=== PATIENT | female | born 1965 | race Caucasian/White ===

== ENCOUNTER 2017-07-06 08:18 | Day surgery (SDC) | payer OTHER ==
[~2017-07-06 08:18] MED LIST: Lactated Ringers 1,000 ML IV SCH; Lidocaine 1%/Sod Bicarbonate in NS 8.4% 1 ML Syringe IDERM PRN; Sodium Chloride 0.9% 10 ML Syringe FLUSH PRN
--- NOTE | 2017-07-06 09:01 | PCM.PREANE ---
Preanesthetic Assessment - Anesthesia/Transfusion/Family Hx Anesthesia History: Prior Anesthesia Without Reaction Family History of Anesthesia Reaction: No Transfusion History: No Prior Transfusion(s) - Review of Systems General: Other (obesity) Pulmonary: No Symptoms Cardiovascular: No Symptoms Gastrointestinal: No Symptoms Neurological: No Symptoms Other: Reports: Depression - Physical Assessment NPO Status Date: 07/05/17 NPO Status Time: 22:00 Pulse: 73 O2 Sat by Pulse Oximetry: 98 Respiratory Rate: 20 Blood Pressure: 124/67 Temperature: 37.1 C Weight: 104 kg ASA Class: 2 Mental Status: Alert & Oriented x3 Airway Class: Mallampati = 2 Dentition: Reports: Normal Dentition Thyro-Mental Finger Breadths: 3 Mouth Opening Finger Breadths: 3 ROM/Head Extension: Full Lungs: Clear to Auscultation, Normal Respiratory Effort Cardiovascular: Regular Rate, Regular Rhythm - Allergies Allergies/Adverse Reactions: Allergies Allergy/AdvReac Type Severity Reaction Status Date / Time No Known Allergies Allergy Verified 07/05/17 11:10 - Blood Blood Available: No Product(s) Available: None - Anesthesia Plan Pre-Op Medication Ordered: None - Acknowledgements Anesthesia Type Planned: MAC Pt an Appropriate Candidate for the Planned Anesthesia: Yes Alternatives and Risks of Anesthesia Discussed w Pt/Guardian: Yes Pt/Guardian Understands and Agrees with Anesthesia Plan: Yes PreAnesthesia Questionnaire HEENT History: Reports: Impaired Vision, Other (See Below) Other HEENT History: wears glasses Cardiovascular History: Reports: None Respiratory History: Reports: None Gastrointestinal History: Reports: Hemorrhoids Genitourinary History: Reports: None 3D ARTIST History: Reports: None Musculoskeletal History: Reports: None Neurological History: Reports: Migraines Psychiatric History: Reports: Depression Endocrine/Metabolic History: Reports: Obesity/BMI 30+ Hematologic History: Reports: None Immunologic History: Reports: None Oncologic (Cancer) History: Reports: None Dermatologic History: Reports: None - Past Surgical History Head Surgeries/Procedures: Reports: None Cardiovascular Surgical History: Reports: None Respiratory Surgical History: Reports: None GI Surgical History: Reports: None Female Surgical History: Reports: Hysterectomy Male Surgical History: Reports: None Endocrine Surgical History: Reports: None Neurological Surgical History: Reports: None Musculoskeletal Surgical History: Reports: None Oncologic Surgical History: Reports: None Dermatological Surgical History: Reports: None - SUBSTANCE USE Smoking Status *Q: Former Smoker Recreational Drug Use History: No - HOME MEDS Home Medications: Home Meds . [No Known Home Meds] 07/05/17 [History] - CURRENT (IN HOUSE) MEDS Current Meds: Current Medications Lactated Ringer's (Ringers, Lactated) 1,000 mls @ 125 mls/hr IV ASDIRECTED ANTWAN Stop: 07/06/17 23:00 Lidocaine/Sodium Bicarbonate (Buffered Lidocaine 1% In Ns 8.4%) 0.25 ml IDERM ONETIME PRN PRN Reason: Prior to IV Start Stop: 07/06/17 18:00 Sodium Chloride (Saline Flush) 10 ml FLUSH ASDIRECTED PRN PRN Reason: Keep Vein Open Stop: 07/06/17 18:00
[2017-07-06] MEDS ORDERED: Midazolam 1 MG/ML 2 ML SDV ONE (09:17)
[2017-07-06] MEDS ORDERED: Propofol 200 MG/20 ML SDV ONE (09:17)
--- NOTE | 2017-07-06 09:44 | PCM.OPNOTE ---
- General Post-Op/Procedure Note Date of Surgery/Procedure: 07/06/17 Operative Procedure(s): Colonoscopy Findings: Anal tags Pre Op Diagnosis: Screening colonoscopy Post-Op Diagnosis: Uncomplicated anal tags Anesthesia Technique: MAC, Moderate Sedation Primary Surgeon: Julito Dumont Pathology: None EBL in mLs: 0 Complications: None Condition: Good Free Text/Narrative:: After adequate IV sedation and analgesia was obtained with monitoring the patient was placed on her left side. Perianal inspection revealed the anal tags. Digital rectal examination was grossly normal. A lubricated colonoscope was then inserted into the rectum then advanced under direct vision with air insufflation as necessary to reach cecum. The bowel preparation was adequate. The cecum ascending colon transverse and descending colons were endoscopically normal with no mass lesions or inflammatory changes seen. The sigmoid was unremarkable as well. The rectum in the retroflexed view was remarkable for the anal tags which are uncomplicated. Sorter Packer photographs taken for the patient and for the medical record. Air was removed as I finished the procedure which she tolerated well.
--- NOTE | 2017-07-06 09:49 | PCM48HPAN ---
Post Anesthesia Note - EVALUATION WITHIN 48HRS OF ANESTHETIC Vital Signs in Normal Range: Yes Patient Participated in Evaluation: Yes Respiratory Function Stable: Yes Airway Patent: Yes Cardiovascular Function Stable: Yes Hydration Status Stable: Yes Pain Control Satisfactory: Yes Nausea and Vomiting Control Satisfactory: Yes Mental Status Recovered: Yes Pulse Rate: 66 SaO2: 93 Resp Rate: 12 Temperature: 37.4 C Blood Pressure: 110/81
== END 2017-07-06 10:22 | disposition home or self-care (01) ==
LOC: JD.SDS 08:18
PROVIDERS: ATTEND Surgery
DX: Z12.11 Encounter for screening for malignant neoplasm of colon (principal); K64.4 Residual hemorrhoidal skin tags; F32.9 Major depressive disorder, single episode, unspecified; G43.909 Migraine, unspecified, not intractable, without status migrainosus; E66.9 Obesity, unspecified; Z68.36 Body mass index [BMI] 36.0-36.9, adult; Z87.891 Personal history of nicotine dependence
CPT/HCPCS: 45378; J2250; J7120; J2704

== ENCOUNTER 2020-03-25 08:55 | Emergency (ER) | payer OTHER, BC ==
[2020-03-25] MEDS ORDERED: Fluorescein 1 MG Ophth Strip EYELF ONE (09:18)
[2020-03-25] MEDS ORDERED: Proparacaine 0.5% Ophth Soln 15 ML Bottle EYELF ONE (09:18)
--- NOTE | 2020-03-25 09:30 | EDM.PDOC ---
ED HPI GENERAL MEDICAL PROBLEM - General Chief Complaint: Eye Problems Stated Complaint: FB IN EYE Time Seen by Provider: 03/25/20 09:09 Source of Information: Reports: Patient History Limitations: Reports: No Limitations - History of Present Illness INITIAL COMMENTS - FREE TEXT/NARRATIVE: 54-year-old female presents to the emergency department with complaints of pain to her left eye. 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 She is unsure whether she only has soy sauce in her eye or if she may have a shard of glass in there as it carmona to open her eye. Onset: Today, Sudden Left Eye Pain Score (Numeric/FACES): 4 - Related Data Allergies Allergy/AdvReac Type Severity Reaction Status Date / Time No Known Allergies Allergy Verified 03/25/20 09:10 Home Meds: Home Meds . [No Known Home Meds] 07/05/17 [History] Past Medical History HEENT History: Reports: Impaired Vision, Other (See Below) Other HEENT History: wears glasses Cardiovascular History: Reports: None Respiratory History: Reports: None Gastrointestinal History: Reports: Hemorrhoids Genitourinary History: Reports: None MACHINERY ENGINEER History: Reports: None Musculoskeletal History: Reports: None Neurological History: Reports: Migraines Psychiatric History: Reports: Depression Endocrine/Metabolic History: Reports: Obesity/BMI 30+ Hematologic History: Reports: None Immunologic History: Reports: None Oncologic (Cancer) History: Reports: None Dermatologic History: Reports: None - Past Surgical History Head Surgeries/Procedures: Reports: None Cardiovascular Surgical History: Reports: None Respiratory Surgical History: Reports: None GI Surgical History: Reports: None Female Surgical History: Reports: Hysterectomy Endocrine Surgical History: Reports: None Neurological Surgical History: Reports: None Musculoskeletal Surgical History: Reports: None Oncologic Surgical History: Reports: None Dermatological Surgical History: Reports: None Social & Family History - Tobacco Use Tobacco Use Status *Q: Never Tobacco User - Caffeine Use Caffeine Use: Reports: Coffee, Soda - Recreational Drug Use Recreational Drug Use: No ED ROS GENERAL - Review of Systems Review Of Systems: See Below Constitutional: Reports: No Symptoms HEENT: Reports: Eye Pain (Left) Respiratory: Reports: No Symptoms Cardiovascular: Reports: No Symptoms Endocrine: Reports: No Symptoms GI/Abdominal: Reports: No Symptoms : Reports: No Symptoms Musculoskeletal: Reports: No Symptoms Skin: Reports: No Symptoms Neurological: Reports: No Symptoms Psychiatric: Reports: No Symptoms Hematologic/Lymphatic: Reports: No Symptoms Immunologic: Reports: No Symptoms ED EXAM GENERAL W FULL EYE - Physical Exam Exam: See Below Exam Limited By: No Limitations General Appearance: Alert, WD/WN, No Apparent Distress Eye Exam: Bilateral Eye: EOMI, PERRL Eyelids: Left: Erythema, Infraorbital Anesthesia, Bilateral: Normal Appearance Conjunctiva & Sclera: Bilateral: Normal Appearance Cornea Exam: Left: Normal Appearance, Examined with Flourescein Extraocular Movements: Bilateral: Intact Pupils: Normal Accommodation Pupillary Size: Bilateral: 3 mm Pupillary Reaction: Bilateral: Brisk Ears: Hearing Grossly Normal Nose: Normal Inspection Throat/Mouth: Normal Inspection, Normal Voice, No Airway Compromise Head: Atraumatic, Normocephalic Neck: Normal Inspection, Supple, Non-Tender, Full Range of Motion Respiratory/Chest: No Respiratory Distress (Female) Exam: Deferred Rectal (Female) Exam: Deferred Back Exam: Normal Inspection, Full Range of Motion Extremities: Normal Inspection, Normal Range of Motion Neurological: Alert, Oriented, Normal Cognition Psychiatric: Normal Affect, Normal Mood Skin Exam: Warm, Dry, Intact, Normal Color, No Rash Lymphatic: No Adenopathy Course - Vital Signs Text/Narrative:: 54-year-old female who sustained an eye injury at work this morning. She was stocking shelves with soy sauce when she knocked a bottle down and it shattered on the ground in front of her however it splashed back up into her face and she is unsure of whether or not she has glass in her eye. Patient states she does not feel like she has a foreign body in her eye when moving her eye around with it closed. Nursing staff irrigated the patient's eye with normal saline and she states after that it felt significantly better. I have ordered proparacaine and fluorescein and will have Dr. Savage assist me with an eye exam. Last Recorded V/S: Last Vital Signs Temp 96.2 F L 03/25/20 09:08 Pulse 77 03/25/20 09:08 Resp 16 03/25/20 09:08 BP 142/89 H 03/25/20 09:08 Pulse Ox 94 L 03/25/20 09:08 - Orders/Labs/Meds Meds: Medications Discontinued Medications Generic Name Dose Route Start Last Admin Trade Name Cecil PRN Reason Stop Dose Admin Fluorescein Sodium 1 mg 03/25/20 09:18 03/25/20 09:27 Ful-Giana EYELF 03/25/20 09:19 1 mg ONETIME ONE Administration Proparacaine HCl 1 ml 03/25/20 09:18 03/25/20 09:23 Proparacaine 0.5% Ophth Soln EYELF 03/25/20 09:19 1 ml ONETIME ONE Administration - Re-Assessments/Exams Free Text/Narrative Re-Assessment/Exam: 03/25/20 09:43 Was unable to visualize as well as Dr. Savage a foreign body in the patient's eye. She will be discharged to home. Departure - Departure Time of Disposition: 09:51 Disposition: Home, Self-Care 01 Condition: Good Clinical Impression: Eye irritation - Discharge Information Referrals: Dixon Lewis PA-C [Primary Care Provider] - Forms: ED Department Discharge Additional Instructions: You were seen in the emergency department complaints of left eye pain after having soy sauce splashed in your face. Evaluation reveals that you do not have any foreign bodies such as glass in your eye and it was less white cells causing the discomfort. We irrigated your left eye with saline and this seemed to help with the discomfort. You can try using saline eyedrops for comfort also can take Tylenol 650 mg every 4 hours as needed for pain or ibuprofen 600 mg every 6 hours as needed for pain/discomfort. Should your condition worsen or change you can return to the emergency department or follow-up with your eye doctor. Sepsis Event Note (ED) - Evaluation Sepsis Screening Result: No Definite Risk - Focused Exam Vital Signs: Vital Signs Temp Pulse Resp BP Pulse Ox 03/25/20 09:08 96.2 F L 77 16 142/89 H 94 L
== END 2020-03-25 10:04 | disposition home or self-care (01) ==
LOC: JD.ED 08:55
DX: H57.89 Other specified disorders of eye and adnexa (principal); E66.9 Obesity, unspecified; Z68.33 Body mass index [BMI] 33.0-33.9, adult
CPT/HCPCS: 99283

== ENCOUNTER 2021-10-06 07:31 | Emergency (ER) | payer OTHER, BC | END 2021-10-06 09:03 | disposition home or self-care (01) | LOC: JD.ED 07:31 | DX: S80.01XA Contusion of right knee, initial encounter (principal); E66.9 Obesity, unspecified; Z68.37 Body mass index [BMI] 37.0-37.9, adult; W19.XXXA Unspecified fall, initial encounter; Y99.0 Civilian activity done for income or pay | CPT/HCPCS: 73564-26-RT; 73564-RT; 99282; 99283 ==

== ENCOUNTER 2022-12-18 06:58 | Emergency (ER) | payer OTHER, BC ==
[2022-12-18] MEDS ORDERED: Albuterol 6.7 GM Inhaler INH ONE (07:48)
== END 2022-12-18 10:45 | disposition home or self-care (01) ==
LOC: JD.ED 06:58
DX: S80.912A Unspecified superficial injury of left knee, initial encounter (principal); E66.9 Obesity, unspecified; Z68.36 Body mass index [BMI] 36.0-36.9, adult; W18.30XA Fall on same level, unspecified, initial encounter
CPT/HCPCS: 73562-26-LT; 73562-LT; 99283

== ENCOUNTER 2023-08-05 06:41 | Emergency (ER) | payer OTHER, BC ==
[2023-08-05] MEDS: Ketorolac 60 MG/2 ML SDV IM ONE (07:35)
[2023-08-05] MEDS: Acetaminophen/oxyCODONE 325-5 MG Tab PO ONE (09:30)
== END 2023-08-05 09:35 | disposition home or self-care (01) ==
LOC: JD.ED 06:41
DX: S63.501A Unspecified sprain of right wrist, initial encounter (principal); E66.9 Obesity, unspecified; Z79.899 Other long term (current) drug therapy; W19.XXXA Unspecified fall, initial encounter
CPT/HCPCS: 73030; 73080; 73110; 96372; 99283; A9270; J1885

== ENCOUNTER 2024-09-28 04:08 | Emergency (ER) | payer BC ==
[2024-09-28 04:29] LABS: BASOPHILS ABSOLUTE AUTO 0.0 K/mm3 (0.0-0.2); BASOPHILS PERCENT AUTO 0.6 % (0.0-1.0); EOSINOPHILS ABSOLUTE AUTO 0.3 K/mm3 (0.0-0.4); EOSINOPHILS PERCENT AUTO 4.9 % (0.0-6.0); IMMATURE GRAN ABSOLUTE AUTO 0.02 K/mm3 (0.00-0.05); IMMATURE GRAN PERCENT AUTO 0.4 % (0.0-0.4); LYMPHOCYTES ABSOLUTE AUTO 1.5 K/mm3 (1.0-4.8); LYMPHOCYTES PERCENT AUTO 28.4 % (24.0-44.0); MEAN PLATELET VOLUME 9.5 fl (9.4-12.3); MONOCYTES ABSOLUTE AUTO 0.3 K/mm3 (0.0-0.8); MONOCYTES PERCENT AUTO 6.4 % (0.0-8.0); NEUTROPHILS ABSOLUTE AUTO 3.1 K/mm3 (1.8-7.7); NEUTROPHILS PERCENT AUTO 59.3 % (41.0-71.0); NRBC ABSOLUTE 0.00 (0.00-0.02); NRBC PERCENT 0.0 % (0.0-0.2); PLATELET COUNT,PLT 259 K/mm3 (150-400); RED BLOOD CELL COUNT 5.24 M/mm3 (4.10-5.30); WHITE BLOOD CELL COUNT,WBC 5.29 K/mm3 (3.9-11.3)
[2024-09-28] MEDS: Sodium Chloride 0.9% 10 ML Syringe FLUSH PRN (04:37)
[2024-09-28 05:35] LABS: A/G RATIO 1.0 (1-2); ALANINE AMINOTRANSFERASE,ALT 40.0 U/L (14-59); ASPARTATE AMNIOTRANSFERASE,AST 23.0 U/L (15-37); BILIRUBIN TOTAL 0.5 mg/dL (0.2-1.0); BLOOD UREA NITROGEN,BUN 25.0 mg/dL (7-18); CARBON DIOXIDE,CO2 29.0 mEq/L (21-32); CHLORIDE,CL 105.0 mEq/L (98-107); CREATININE 0.5 mg/dL (0.55-1.02); EST CRCL DRUG DOSING (CG) 125.23 mL/min; ESTIMATED GFR 109.0 mL/min (>60); GLUCOSE RANDOM 89.0 mg/dL (70-99); POTASSIUM,K 3.7 mEq/L (3.5-5.1); PROTEIN TOTAL,TP 7.1 g/dl (6.4-8.2); SODIUM,NA 142.0 mEq/L (136-145); TROPONIN I HIGH SENSITIVITY 4.0 pg/mL (<=51)
== END 2024-09-28 06:20 | disposition home or self-care (01) ==
LOC: JD.ED 04:08
DX: R07.89 Other chest pain (principal); R00.2 Palpitations; E66.9 Obesity, unspecified; Z90.710 Acquired absence of both cervix and uterus; Z88.5 Allergy status to narcotic agent; Z68.36 Body mass index [BMI] 36.0-36.9, adult
CPT/HCPCS: 36415; 71045; 80053; 83735; 84484; 85025; 85379; 93005; 93246; 99285; A9270